=== PATIENT | male | born 1950 | race Caucasian/White ===

== ENCOUNTER 2017-02-10 00:40 | Emergency (ER) | payer SELFPAY ==
[~2017-02-10] VITALS: Ht 165.1 cm; Wt 65.9 kg
[2017-02-10 00:51] VITALS: Ht 165.1 cm; Wt 65.9 kg
[2017-02-10] MEDS ORDERED: ONDANSETRON 4 MG INJ IV STA (02:27)
[2017-02-10] MEDS ORDERED: FAMOTIDINE 20 MG INJ IV STA (02:27)
[2017-02-10] MEDS ORDERED: HYDROmorphONE 1 MG/ML SYG IV STA (02:27)
[2017-02-10 03:03] LABS: ADD SCAN DIFF NO
[2017-02-10 03:12] LABS: BASOPHILS % 0.2 % (0.0-2.0); EOSINOPHILS % 0.2 % (0.0-7.0); HEMATOCRIT 40.7 % (42.0-52.0); HEMOGLOBIN 13.4 g/dl (14.0-18.0); LYMPHOCYTES # 1.2 10^3/ul (0.8-2.9); LYMPHOCYTES % 12.6 % (15.0-51.0); MEAN CORPUSCULAR HEMOGLOBIN 28.6 pg (29.0-33.0); MEAN CORPUSCULAR HGB CONC 32.9 g/dl (32.0-37.0); MEAN CORPUSCULAR VOLUME 86.8 fl (82.0-101.0); MEAN PLATELET VOLUME 11.2 fl (7.4-10.4); MONOCYTE # 0.6 10^3/ul (0.3-0.9); MONOCYTES % 6.3 % (0.0-11.0); NEUTROPHIL # 7.3 10^3/ul (1.6-7.5); NEUTROPHILS % 80.4 % (39.0-77.0); PLATELET COUNT 197 10^3/UL (140-415); RED BLOOD COUNT 4.69 10^6/ul (4.70-6.10); RED CELL DISTRIBUTION WIDTH 13.3 % (11.5-14.5); WHITE BLOOD COUNT 9.1 10^3/ul (4.8-10.8)
--- NOTE | 2017-02-10 03:16 | ERD ---
ER Documentation Chief Complaint Date/Time DATE: 02/10/17 TIME: 03:15 Chief Complaint PT C/O MID ABD PAIN WITH RADIATION TO LOW BACK TODAY, +N/V, ANXIETY HPI This is a 66-year-old male who stated that this evening he developed some epigastric and right upper quadrant crampy pain without radiation. He says he is nauseated but did not vomit. He says that he has no chest pain no shortness of breath palpitations or dizziness. He says he has a lot of belching and symptoms began after eating. He says that the past few weeks he has been noticed that he is getting bloated after eating. No fever cough shortness of breath ROS All systems reviewed and are negative except as per history of present illness. Medications Home Meds Active Scripts Dicyclomine Hcl* (Bentyl*) 10 Mg Capsule, 20 MG PO QID, #30 CAP Prov:MAGI NAVAS DO 02/10/17 Hydrocodone/Acetaminophen ([place] 10-325 Tablet) 1 Each Tablet, 1 TAB PO Q6H Y for PAIN, #20 TAB Prov:MAGI NAVAS DO 02/10/17 Allergies Allergies: Coded Allergies: No Known Allergy (Unverified , 02/10/17) FmHx Family History: No coronary disease Physical Exam Vitals Vital Signs Date Time Temp Pulse Resp B/P Pulse Ox O2 Delivery O2 Flow Rate FiO2 02/10/17 02:49 58 16 110/80 100 Room Air 3.0 02/10/17 00:51 96.7 59 16 143/73 98 Physical Exam Const: Well-developed, well-nourished Head: Atraumatic, normocephalic Eyes: Normal Conjunctiva, PERRLA, EOMI, normal sclera, no nystagmus ENT: Normal External Ears, Nose and Mouth, moist mucus membranes. Neck: Full range of motion. No meningismus, no lymphadenopathy. Resp: Clear to auscultation bilaterally, no wheezing, rhonchi, rales Cardio: Regular rate and rhythm, no murmurs, S1 S2 present Abd: Soft, epigastric tenderness and right upper quadrant tenderness that is mild to moderate, non distended. Normal bowel sounds, no guarding or rebound, no pulsitile abdominal masses or bruits Skin: No petechiae or rashes, no ecchymosis , no maculopapular rash Back: No midline or flank tenderness Ext: No cyanosis, or edema, FROM x 4, normal inspection, neurovascularly intact x 4 Neur: Awake and alert, STR 5/5 x 4, sensation intact x 4, no focal findings, cerebellum intact Psych: Normal Mood and Affect Result Diagram: 02/10/17 0245 02/10/17 0245 Results 24 hrs Laboratory Tests Test 02/10/17 02:45 White Blood Count 9.110^3/ul Red Blood Count 4.6910^6/ul Hemoglobin 13.4g/dl Hematocrit 40.7% Mean Corpuscular Volume 86.8fl Mean Corpuscular Hemoglobin 28.6pg Mean Corpuscular Hemoglobin Concent 32.9g/dl Red Cell Distribution Width 13.3% Platelet Count 06560^3/UL Mean Platelet Volume 11.2fl Neutrophils % 80.4% Lymphocytes % 12.6% Monocytes % 6.3% Eosinophils % 0.2% Basophils % 0.2% Nucleated Red Blood Cells % 0.0/100WBC Neutrophils # 7.310^3/ul Lymphocytes # 1.210^3/ul Monocytes # 0.610^3/ul Eosinophils # 0.010^3/ul Basophils # 0.010^3/ul Nucleated Red Blood Cells # 0.010^3/ul Sodium Level 142mmol/L Potassium Level 3.4mmol/L Chloride Level 104mmol/L Carbon Dioxide Level 29mmol/L Anion Gap 12 Blood Urea Nitrogen 22mg/dl Creatinine 0.80mg/dl Glucose Level 103mg/dl Calcium Level 8.9mg/dl Total Bilirubin 0.3mg/dl Direct Bilirubin 0.00mg/dl Indirect Bilirubin 0.3mg/dl Aspartate Amino Transf (AST/SGOT) 38IU/L Alanine Aminotransferase (ALT/SGPT) 50IU/L Alkaline Phosphatase 70IU/L Total Protein 6.9g/dl Albumin 4.0g/dl Globulin 2.90g/dl Albumin/Globulin Ratio 1.37 Lipase 707U/L Current Medications Medications (Trade) Dose Ordered Sig/Megan Route PRN Reason Start Time Stop Time Status Last Admin Dose Admin Hydromorphone HCl (Dilaudid) 1 mg ONCE STAT IV 02/10/17 02:27 02/10/17 02:29 DC 02/10/17 02:48 Ondansetron HCl (Zofran Inj) 4 mg ONCE STAT IV 02/10/17 02:27 02/10/17 02:29 DC 02/10/17 02:48 Famotidine (Pepcid Iv) 20 mg ONCE STAT IV 02/10/17 02:27 02/10/17 02:29 DC 02/10/17 02:47 Procedures/MDM PROCEDURE: Abdominal ultrasound, limited. CLINICAL INDICATION: Abdominal pain. TECHNIQUE: Multiple real-time images were acquired of the patient's right upper abdomen utilizing a high resolution transducer. COMPARISON: None FINDINGS: The liver demonstrates normal echogenicity and size measuring 13.1 cm. There is no focal mass or intrahepatic biliary ductal dilatation. The portal vein is patent. The gallbladder is not distended. Multiple echogenic gallstones are identified. There is no pericholecystic fluid or gallbladder wall thickening. The common bile duct measures 3.2 mm in maximal dimension. The visualized portions of the pancreas are unremarkable. The pancreas is partially obscured by overlying bowel gas. No free fluid is identified. The right kidney is normal size and echogenicity measuring 11.8 cm. There is no focal renal mass or echogenic calculus identified. There is no obstructive uropathy. IMPRESSION: Cholelithiasis without ultrasound evidence of cholecystitis. Pancreas partially obscured by overlying bowel gas. .Manjit Macias MD, MD Date Time Electronically viewed and signed by .Manjit Macias MD, MD on 02/10/2017 04:15 .T/ CC: MAGI NAVAS DO Patient received some medication and feels better. Patient has gallstones with common bile duct is normal. His normal liver function tests and bilirubin. Lipase is elevated at 707 however the patient's vomiting and lipase is not quite elevated enough to warrant admission. Will do clear liquid diet for 24 hours followed by low-fat diet. We will discharge home with Geena and Shahbaz with surgery follow-up Departure Diagnosis: Primary Impression: Gallstones Condition: Stable MAGI NAVAS DO February 10, 2017 03:16
[2017-02-10 03:26] LABS: POTASSIUM 3.4 mmol/L (3.5-5.1)
[2017-02-10 03:27] LABS: CREATININE 0.8 mg/dl (0.61-1.24)
[2017-02-10 03:28] LABS: ALBUMIN/GLOBULIN RATIO 1.37; BILIRUBIN,INDIRECT 0.3 mg/dl (0-1.1); BILIRUBIN,TOTAL 0.3 mg/dl (0.2-1.3); TOTAL PROTEIN 6.9 g/dl (6.1-8.1)
[2017-02-10 03:29] LABS: CALCIUM 8.9 mg/dl (8.4-10.2)
--- NOTE | 2017-02-10 04:15 | RADRPT ---
PROCEDURE: Abdominal ultrasound, limited. CLINICAL INDICATION: Abdominal pain. TECHNIQUE: Multiple real-time images were acquired of the patient's right upper abdomen utilizing a high resolution transducer. COMPARISON: None FINDINGS: The liver demonstrates normal echogenicity and size measuring 13.1 cm. There is no focal mass or in trahepatic biliary ductal dilatation. The portal vein is patent. The gallbladder is not distended. Multiple echogenic gallstones are identified. There is no pericholecystic fluid or gallbladder wa ll thickening. The common bile duct measures 3.2 mm in maximal dimension. The visualized portions of the pancreas are unremarkable. The pancreas is partially obscured by overlying bowel gas. No fr ee fluid is identified. The right kidney is normal size and echogenicity measuring 11.8 cm. There is no focal renal mass or echogenic calculus identified. There is no obstructive uropathy. IMPRESSION: Cholelithiasis without ultrasound evidence of cholecystitis. Pancreas partially obscured by overlying bowel gas. .Manjit Macias MD, Date Time Electronically viewed and signed by .Manjit Macias MD, MD on 02/10/2017 04:15 .T/
[2017-02-10] MEDS ORDERED: HYDR-902 PO (04:26)
[2017-02-10] MEDS ORDERED: DICY10CA60 PO (04:26)
[2017-02-10] MEDS ORDERED: ERYTOPOI RIGHT EYE (04:31)
[2017-02-10 04:44] VITALS: BP 130/76; PULSE 66; RESP 17; TEMP 98.5
== END 2017-02-10 04:47 | disposition home or self-care (01) ==
LOC: E/R 00:40
DX: K80.20 Calculus of gallbladder without cholecystitis without obstruction (principal); R11.2 Nausea with vomiting, unspecified
CPT/HCPCS: 36415; 76705; 80053; 83690; 85025; 96374; 96375; 99285; J1170; J2405